=== PATIENT | female | born 1940 | race Caucasian/White ===

== ENCOUNTER → 2017-11-25 | Day surgery (SDC) | payer OTHER ==
[~2017-11-25] VITALS: Ht 154.9 cm; Wt 97.4 kg
[~2017-11-25] MED LIST: ACETAMINOPHEN 500 MG CPLT PO PRN; AMLO-172 PO; ASPI1TAB57 PO; ATROPINE SULFATE 1% OPHT SOLN 2 ML BTL ONE; ATROPINE SULFATE 1% OPHT SOLN 5 ML BTL RIGHT EYE SCH; BACITRACIN TOP OINT 15 GM TUBE ONE; CHLORHEXIDINE GLUCONATE 2 % 1 PACK (2 CLOTHS) TOPICAL PRN; COLE625 PO; DEXAMETHASONE SOD PHOS 4 MG/ML VIAL ONE; DO NOT ADM ANY ANTICOAGULANT DRUGS PRN; DOXY1CAP74 PO; DULA0.5I SQ; EPINEPHrine HCL (1:1000) 1 MG/ML VIAL ONE; FAMOTIDINE 20 MG/2 ML VIAL ONE; FENO145T2 PO; GABA300C5 PO; LACTATED RINGER'S 1000 ML IV PRN; LANTUS2P SQ; LEVO75TA3 PO; LIDOCAINE HCL 1% PF 5 ML SYRINGE OTHER ONE; MELO7.5T27 PO; METF-382 PO; METO25TA3 PO; METOPROLOL TARTRATE 25 MG TAB PO PRN; MIDAZOLAM HCL 2 MG/2 ML VIAL ONE; ONDANSETRON HCL 4 MG/2 ML VIAL IV ONE; PANT40TA3 PO; PHENYLEPH/NS 1000 MCG/10 ML SYR IV ONE; POVIDONE IODINE 5% (ANTISEPSIS KIT) 4 APPLICATIONS EACH NARE PRN; PROPOFOL 200 MG/20 ML AMP IV ONE; ROPI0.25 PO; SODIUM CHLORID 0.9% 500 ML IV PRN; TOBRAMYCIN 0.3%/DEXAMETHASONE 0.1% OPHT SUSP 5 ML BTL ONE; TOBRAMYCIN/DEXAMETHASONE OPTH OINT 3.5 GM TUBE ONE; TRIAMCINOLONE ACETONIDE/PF 40 MG/ML OPTH VIAL ONE; ceFAZolin INJ 1,000 MG VIAL ONE; ePHEDrine/NS 25 MG/5 ML SYRINGE IV ONE; oxyCODONE/ACETAMINOPHEN 5 MG/325 MG TAB PO PRN
[2017-11-25] MEDS: PHENYLEPHRINE HCL 2.5% OPTH SOLN 2 ML BTL RIGHT EYE SCH ×2 (07:15→07:30)
[2017-11-25] MEDS: TROPICAMIDE 1% OPHT SOLN 15 ML BTL RIGHT EYE SCH ×2 (07:15→07:30)
[2017-11-25] MEDS: CYCLOPENTOLATE HCL 1% OPHT SOLN 2 ML BTL RIGHT EYE SCH ×2 (07:15→07:30)
[2017-11-25 07:23] LABS: AUTOMATED NEUTROPHIL # 3.5 TH/MM3 (1.8-7.7); BASOPHIL % 0.7 % (0.0-2.0); EOSINOPHIL # 0.2 TH/MM3 (0-0.4); EOSINOPHIL % 2.9 % (0.0-4.0); LYMPH % 29.2 % (9.0-44.0); LYMPHOCYTE # 1.8 TH/MM3 (1.0-4.8); MEAN CELL VOLUME 85.2 FL (80.0-100.0); MEAN CORPUSCULAR HEMOGLOBIN 29.2 PG (27.0-34.0); MEAN CORPUSCULAR HGB CONC 34.3 % (32.0-36.0); MEAN PLATELET VOLUME 8.8 FL (7.0-11.0); MONO % 9.8 % (0.0-8.0); MONOCYTE # 0.6 TH/MM3 (0-0.9); NEUT % 57.4 % (16.0-70.0); PLATELET COUNT 205 TH/MM3 (150-450); RED BLOOD COUNT 4.46 MIL/MM3 (4.00-5.30); RED CELL DISTRIBUTION WIDTH 14.3 % (11.6-17.2)
--- NOTE | 2017-11-25 10:15 | MP ---
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 POSTOPERATIVE DIAGNOSIS: Severe nonproliferative diabetic retinopathy with epiretinal membrane and macular edema, right eye. PROCEDURE: Trans pars plana vitrectomy with ICG guided epiretinal membrane and internal limiting membrane peel, endolaser, panretinal, photocoagulation, and air fluid exchange, right eye. SURGEON: Aleah Nur MD. ANESTHESIA: General laryngeal mask anesthesia. INDICATIONS: Ms. Jackson is a 77-year-old woman with type 2 diabetes for 15-20 years with severe nonproliferative diabetic retinopathy in her right eye and an epiretinal membrane with macular pucker and macular edema. She wished to proceed electively with a vitrectomy and epiretinal membrane peel as well as laser photocoagulation in her right eye. The risks and benefits of surgery were discussed with the patient and informed consent was obtained. No guarantee was made as to visual outcome. PROCEDURE NOTE: She was brought to [facility] operating room #1 on the eye stretcher. Appropriate anesthesia monitoring devices were applied and she was placed under general anesthesia using a laryngeal mask. The right eye was identified as the operative site and then prepped and draped in the usual sterile fashion. A lid speculum was placed. At this point, an appropriate time-out was called with the surgical team agreeing to the proposed procedure and surgical site. Using the microscope for visualization and a flat contact lens on the cornea, the eye was entered with the endo-assisted living associate light pipe and vitrectomy cutter after first introducing some Kenalog into the posterior chamber to help visualize the vitreous. A core vitrectomy was carried out. Using aspiration, the posterior hyaloid was elevated up into the mid periphery and removed. ICG was used to stain the membrane, which was removed using both the Odell membrane scraper, the Sj's pick and then once it had been elevated, aspiration with the soft tipped linear extrusion needle. Using the wide-angle viewing system, the peripheral vitrectomy was removed and then laser panretinal photocoagulation was performed using the endolaser probe and a power of 200 milliwatts and 0.1 second exposure. A total of 336 laser spots were placed around the mid periphery. The eye was then inspected with the indirect ophthalmoscope and scleral depression. No peripheral retinal breaks were noted. A partial air-fluid exchange was then performed after which, the cannulas were removed one by one with tamponade of the site with a cotton swab and diathermy to the overlying conjunctival wound. This left the eye with good pressure and no visible air leaks. Atropine drops were placed on the cornea and injections of Ancef 125 mg in 0.5 mL and Decadron 2 mg in 0.5 mL were given at separate sites. The lid speculum was removed and the patient was undraped. TobraDex ointment were placed on the cornea and then the right eye was patched and shielded. The patient had the laryngeal mask removed in the room and was returned to recovery area in good condition laying on her left side. MD IMCHAEL Winslow/TRACIE , 09:51 AM , 10:14 AM
[2017-11-25 11:09] VITALS: BP 152/73; PULSE 86; RESP 20; TEMP 97.6; O2SAT 96
--- NOTE | 2017-11-25 16:21 | EKG ---
Date Performed: 11/25/2017 Time Performed: 06:42:39 PTAGE: 77 years EKG: Sinus rhythm PROBABLE INFERIOR MYOCARDIAL INFARCTION , PROBABLY OLD MODERATE T-WAVE ABNORMALITY, CONSIDER LATERAL ISCHEMIA ABNORMAL ECG NO PREVIOUS TRACING DOCTOR: Garfield Caba Interpretating Date/Time 11/25/2017 16:16:08
== END | disposition home or self-care (01) ==
LOC: HSDC 06:10
PROVIDERS: ATTEND Ophthalmology
DX: E11.3411 Type 2 diabetes mellitus with severe nonproliferative diabetic retinopathy with macular edema, right eye (principal); H35.371 Puckering of macula, right eye; I10 Essential (primary) hypertension; E78.5 Hyperlipidemia, unspecified; Z79.4 Long term (current) use of insulin
CPT/HCPCS: 00145; 67040; 67042; 85025; 93005; J0171; J0690; J1100; J2250; J2370; J2405; J3010; J3300; J7120